=== PATIENT | female | born 1990 | race Caucasian/White ===

== ENCOUNTER 2016-12-09 13:39 | Emergency (ER) | payer BC ==
[~2016-12-09] VITALS: Ht 162.6 cm; Wt 63.6 kg
[2016-12-09 13:42] VITALS: TEMP 98.3
[2016-12-09] MEDS ORDERED: ATIVAN 1MG T1 MG/TAB PO (13:47)
[2016-12-09] MEDS ORDERED: CLARITIN 1010 MG/TAB PO (13:47)
[2016-12-09 15:34] VITALS: BP 121/89; PULSE 82
== END 2016-12-09 15:34 | disposition home or self-care (01) ==
LOC: COL.ER 13:39
DX: F41.0 Panic disorder [episodic paroxysmal anxiety] (principal); F41.9 Anxiety disorder, unspecified